=== PATIENT | female | born 1995 | race Caucasian/White ===

== ENCOUNTER 2017-07-09 12:40 | Emergency (ER) | payer OTHER ==
[~2017-07-09] VITALS: Ht 152.4 cm; Wt 73.7 kg
[2017-07-09 14:57] LABS: BASOPHIL % 0.3 % (0-2); PLATELET COUNT 324 x10^3mcL (130-400)
[2017-07-09 15:01] LABS: CALCIUM 8.9 mg/dL (8.5-10.1); CARBON DIOXIDE 27.5 mmol/L (21-32); CHLORIDE SERUM 106 mmol/L (98-107); CREATININE SERUM 0.8 mg/dL (0.6-1.0); GFR1 > 60 mL/min; GLUCOSE SERUM 123 mg/dL (74-106); POTASSIUM SERUM 3.9 mmol/L (3.5-5.1); RED CELL DISTRIBUTION WIDTH 21.1 % (11.5-14.5); SODIUM SERUM 144 mmol/L (136-145)
[2017-07-09 15:07] LABS: ALBUMIN 3.4 g/dL (3.4-5.0); ALKALINE PHOSPHATASE 133 U/L (46-116); ALT/SGPT 34 U/L (14-59); AST/SGOT 38 U/L (15-37); BILIRUBIN TOTAL 0.4 mg/dL (0.20-1.00)
[2017-07-09 15:21] LABS: rbc morphology (normal/abnorm) ABNORMAL (NORMAL)
[2017-07-09 16:11] LABS: AMYLASE 2560 U/L (25-115)
[2017-07-09 16:19] VITALS: BP 121/74
[2017-07-09 16:30] LABS: LIPASE 31168 IU/L (73-393)
== END 2017-07-09 16:19 | disposition home or self-care (01) ==
LOC: ED 12:40
DX: K80.20 Calculus of gallbladder without cholecystitis without obstruction (principal)
CPT/HCPCS: J1885; J2405; J3490; Q0092

== ENCOUNTER 2017-09-01 21:06 | Emergency (ER) | payer OTHER ==
[2017-09-02 00:08] VITALS: BP 126/69
== END 2017-09-02 00:08 | disposition home or self-care (01) ==
LOC: ED 21:06
DX: K80.80 Other cholelithiasis without obstruction (principal)

== ENCOUNTER 2017-09-05 00:04 | Emergency (ER) | payer OTHER | END 2017-09-05 00:49 | disposition left against medical advice (07) | LOC: ED 00:04 | DX: Z53.21 Procedure and treatment not carried out due to patient leaving prior to being seen by health care provider (principal) ==

== ENCOUNTER 2017-09-20 05:59 | Inpatient (IN) | payer OTHER ==
[~2017-09-20] VITALS: Ht 152.4 cm; Wt 69.1 kg
[2017-09-20 07:11] LABS: BASOPHIL % 0.5 % (0-2); PLATELET COUNT 339 x10^3mcL (130-400); RED CELL DISTRIBUTION WIDTH 16.4 % (11.5-14.5)
[2017-09-20 07:21] LABS: CALCIUM 8.6 mg/dL (8.5-10.1); CARBON DIOXIDE 29.7 mmol/L (21-32); CHLORIDE SERUM 104 mmol/L (98-107); CREATININE SERUM 0.6 mg/dL (0.6-1.0); GFR1 > 60 mL/min; GLUCOSE SERUM 115 mg/dL (74-106); POTASSIUM SERUM 3.8 mmol/L (3.5-5.1); SODIUM SERUM 141 mmol/L (136-145)
[2017-09-20 07:26] LABS: ALBUMIN 3.7 g/dL (3.4-5.0); ALKALINE PHOSPHATASE 115 U/L (46-116); ALT/SGPT 52 U/L (14-59); AST/SGOT 22 U/L (15-37); BILIRUBIN TOTAL 0.3 mg/dL (0.20-1.00); TOTAL PROTEIN, SERUM 7.9 g/dL (6.4-8.2)
[2017-09-20 08:18] LABS: LIPASE 7991 IU/L (73-393)
[2017-09-20 10:45] VITALS: BP 107/54
[2017-09-20 11:04] LABS: T3 TOTAL 1.21 ng/mL
[2017-09-20 11:23] LABS: FREE T4 1.13 ng/dL (0.76-1.46); FREE THYROXINE INDEX 2.9 ug/dL (1.4-4.5); T4(THYROXINE) 8.3 ug/dL (4.7-13.3)
[2017-09-20 11:24] LABS: CHOLESTEROL/HDL RATIO 3.7; MAGNESIUM 1.9 mg/dL (1.8-2.4); PHOSPHOROUS 3.8 mg/dL (2.5-4.9)
[2017-09-20 12:04] VITALS: BP 102/62
[2017-09-20 16:46] VITALS: BP 103/64
[2017-09-20 21:45] VITALS: BP 91/51
[2017-09-21 02:22] LABS: microscopic required? NO
[2017-09-21 02:31] LABS: urine erythrocyte NEGATIVE (NEGATIVE)
[2017-09-21 02:37] LABS: AMPHETAMINE QUAL UR NONE DETECTED (NEG <=1000)
[2017-09-21 05:43] VITALS: BP 100/49
[2017-09-21 06:08] LABS: BASOPHIL % 0.3 % (0-2); PLATELET COUNT 271 x10^3mcL (130-400)
[2017-09-21 06:28] LABS: ALKALINE PHOSPHATASE 95 U/L (46-116); ALT/SGPT 41 U/L (14-59); AST/SGOT 18 U/L (15-37); BILIRUBIN DIRECT 0.05 mg/dL (0.0-0.2); BILIRUBIN TOTAL 0.3 mg/dL (0.20-1.00); CALCIUM 7.9 mg/dL (8.5-10.1); CARBON DIOXIDE 29.1 mmol/L (21-32); CHLORIDE SERUM 111 mmol/L (98-107); CREATININE SERUM 0.6 mg/dL (0.6-1.0); GFR1 > 60 mL/min; GLUCOSE SERUM 92 mg/dL (74-106); PHOSPHOROUS 3.6 mg/dL (2.5-4.9); POTASSIUM SERUM 3.5 mmol/L (3.5-5.1); SODIUM SERUM 144 mmol/L (136-145); TOTAL PROTEIN, SERUM 6.2 g/dL (6.4-8.2)
[2017-09-21 06:29] LABS: ALBUMIN 2.8 g/dL (3.4-5.0)
[2017-09-21 06:33] LABS: RED CELL DISTRIBUTION WIDTH 16.4 % (11.5-14.5)
[2017-09-21 06:55] LABS: LIPASE 2522 IU/L (73-393)
[2017-09-21 10:48] VITALS: BP 115/67
[2017-09-21 14:15] VITALS: BP 119/74
[2017-09-21 17:29] VITALS: BP 121/70
[2017-09-21 20:33] VITALS: BP 115/70
[2017-09-22 06:16] VITALS: BP 107/66
[2017-09-22 06:23] LABS: CARBON DIOXIDE 28.1 mmol/L (21-32); CHLORIDE SERUM 107 mmol/L (98-107); CREATININE SERUM 0.6 mg/dL (0.6-1.0); GFR1 > 60 mL/min; GLUCOSE SERUM 92 mg/dL (74-106); MAGNESIUM 1.8 mg/dL (1.8-2.4); PHOSPHOROUS 3.4 mg/dL (2.5-4.9); POTASSIUM SERUM 3.2 mmol/L (3.5-5.1); SODIUM SERUM 141 mmol/L (136-145)
[2017-09-22 06:30] LABS: BASOPHIL % 0.2 % (0-2); PLATELET COUNT 297 x10^3mcL (130-400)
[2017-09-22 06:45] LABS: RED CELL DISTRIBUTION WIDTH 16.3 % (11.5-14.5)
[2017-09-22 09:04] VITALS: BP 115/67
[2017-09-22] MEDS ORDERED: COL100 PO (16:10)
[2017-09-22] MEDS ORDERED: NOR10T PO (16:17)
[2017-09-22 17:22] VITALS: BP 115/67
== END 2017-09-22 18:07 | disposition home or self-care (01) | DRG 263 ==
LOC: ED 05:59 → DU 09:19 → MU 09-22 09:33
PROVIDERS: Emergency Medicine; Surgery; ADMIT Family Medicine
PROC: BF131ZZ Fluoroscopy of Gallbladder and Bile Ducts using Low Osmolar Contrast (ICD-10-PCS; 2017-09-21)
PROC: 0FT44ZZ Resection of Gallbladder, Percutaneous Endoscopic Approach (ICD-10-PCS; principal; 2017-09-21 08:00)
DX: K85.10 Biliary acute pancreatitis without necrosis or infection (principal); K76.0 Fatty (change of) liver, not elsewhere classified; K80.20 Calculus of gallbladder without cholecystitis without obstruction; Z68.29 Body mass index [BMI] 29.0-29.9, adult; E66.3 Overweight
CPT/HCPCS: 83880; 84439; 94150; C1758; G0480; J0690; J1885; J2250; J2270; J2405; J3010; J3490; J7030; Q0092; Q9967

== ENCOUNTER 2019-10-24 18:58 | Emergency (ER) | payer OTHER ==
[~2019-10-24] VITALS: Ht 152.4 cm; Wt 72.1 kg
[~2019-10-24 18:58] MED LIST: COL100 PO; NOR10T PO
[2019-10-24 19:13] VITALS: BP 119/83; Ht 152.4 cm; Wt 72.1 kg
== END 2019-10-24 20:19 | disposition home or self-care (01) ==
LOC: ED 18:58
DX: S82.65XA Nondisplaced fracture of lateral malleolus of left fibula, initial encounter for closed fracture (principal); W10.8XXA Fall (on) (from) other stairs and steps, initial encounter; Y93.89 Activity, other specified; Y92.89 Other specified places as the place of occurrence of the external cause; Y99.8 Other external cause status
CPT/HCPCS: Q0092

== ENCOUNTER 2019-11-25 11:35 | Emergency (ER) | payer OTHER ==
[~2019-11-25] VITALS: Ht 154.9 cm; Wt 70.8 kg
[2019-11-25 11:51] VITALS: BP 109/65; Ht 154.9 cm; Wt 70.8 kg
== END 2019-11-25 14:47 | disposition left against medical advice (07) ==
LOC: ED 11:35
DX: Z53.21 Procedure and treatment not carried out due to patient leaving prior to being seen by health care provider (principal)

== ENCOUNTER 2019-11-25 16:58 | Emergency (ER) | payer OTHER ==
[~2019-11-25] VITALS: Ht 152.4 cm; Wt 70.3 kg
[2019-11-25 17:39] VITALS: Ht 152.4 cm; Wt 70.3 kg
[2019-11-25 19:59] VITALS: BP 115/70
== END 2019-11-25 19:59 | disposition home or self-care (01) ==
LOC: ED 16:58
DX: J03.90 Acute tonsillitis, unspecified (principal); R51 Headache
CPT/HCPCS: J0561; J7512

== ENCOUNTER 2020-08-13 18:11 | Emergency (ER) | payer OTHER ==
[~2020-08-13] VITALS: Ht 152.4 cm; Wt 70.3 kg
[2020-08-13 18:28] VITALS: Ht 152.4 cm; Wt 70.3 kg
[2020-08-13 19:53] VITALS: BP 127/81
== END 2020-08-13 19:53 | disposition home or self-care (01) ==
LOC: ED 18:11
DX: J03.90 Acute tonsillitis, unspecified (principal)
CPT/HCPCS: J0696; J7512